=== PATIENT | male | born 1955 | race Caucasian/White ===

== ENCOUNTER → 2016-04-20 | Outpatient (CLI) | payer OTHER ==
[~2016-04-20] MED LIST: IOHEXOL 300 MG/ML 75 ML VIAL IV ONE
--- NOTE | 2016-04-20 16:13 | RAD ---
Indication hematuria. Multiphase imaging targeted to the kidneys was performed. Initially noncontrast imaging through the abdomen and pelvis was performed. This was followed by portal venous phase imaging through the solitary left kidney and finally delayed images were obtained through the abdomen and pelvis. 75 cc of Omnipaque 300 was administered intravenously. No oral contrast was administered. No prior imaging is available. On the preliminary noncontrast images only one functioning left kidney is identified. The kidney is somewhat enlarged compatible with some compensatory hypertrophy. No abnormality is seen. No renal calculi hydronephrosis or mass is suggested on the noncontrast images on the left.. No calculus is seen along the course of the left ureter. On the portal venous phase imaging no renal mass or abnormality is seen. On the delayed images the left kidney appears unremarkable. On the initial noncontrast images of the adrenal gland appears normal. The right kidney is extremely small. There is a solitary calcification seen associated with the markedly atrophied right kidney. The right ureter is significantly dilated proximally, to approximately 3 cm and then terminates in the pelvis just below the aortic bifurcation. The right ureter is not seen distally. On the portal venous phase and delayed imaging there is no function associated with a markedly atrophied right kidney. The findings on the right are consistent with a chronic deformity, likely congenital. 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 The urinary bladder appears unremarkable and the left adrenal gland appears normal. The lung bases are clear. The liver and spleen appear unremarkable. No pancreatic abnormality is seen. Acute finding in the abdomen or pelvis is not apparent. IMPRESSION: No acute finding seen in the abdomen or pelvis. 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 The right kidney is nonfunctioning and markedly atrophied. There is marked dilatation of the right ureter to the level just below the aortic bifurcation. More distally the right ureter is not seen. Apart from compensatory hypertrophy associated with the left kidney the left kidney is unremarkable. PQRS Compliance Statement: One or more of the following individualized dose reduction techniques were utilized for this examination: 1. Automated exposure control 2. Adjustment of the mA and/or kV according to patient size 3. Use of iterative reconstruction technique
== END | disposition home or self-care (01) ==
LOC: CT 13:39
PROVIDERS: ATTEND Urology
DX: N52.9 Male erectile dysfunction, unspecified (principal); I10 Essential (primary) hypertension; R31.9 Hematuria, unspecified
CPT/HCPCS: 74178; Q9967